=== PATIENT | female | born 1960 | race Caucasian/White ===

== ENCOUNTER → 2023-01-03 14:04 | Outpatient (CLI) | payer OTHER, SELFPAY ==
[2023-01-04 09:17] LABS: x Labcorp Estim. Avg Glu (eAG) 140 mg/dL (.); x Labcorp Hemoglobin A1c 6.5 % (4.8-5.6)
== END ==
PROVIDERS: PCP Podiatrist; Referring Provider Podiatrist; Visit Provider Podiatrist
DX: R73.9 Hyperglycemia, unspecified (principal)
CPT/HCPCS: 36415; 83036

== ENCOUNTER 2023-05-17 10:05 | Day surgery (SDC) | payer OTHER, SELFPAY ==
[2023-05-15 07:53] VITALS: BMI 31.6
[2023-05-17] VITALS (8 sets, daily range): BP systolic 109–140; BP diastolic 71–82; PULSE 72–83; RESP 12–16; TEMP 36.2–36.3; O2SAT 92–98; BMI 31.6
[2023-05-17] MEDS: LACTATED RINGERS 1,000 ML 100 ML IV ×2 (10:24→16:31)
--- NOTE | 2023-05-17 13:14 | PM.PREOP ---
Pre-operative Note Interval Note History & Physical reviewed/Exam performed by Physician: Yes Changes to H&P: No
--- NOTE | 2023-05-17 13:15 | PM.OP.1 ---
Operative Date/Time/Diagnoses Date of procedure: 05/17/23 Time of procedure: 13:15 Pre-op diagnosis: Right hallux valgus with bunion, metatarsalgia, hammertoes 2,3,4,5 Post-op diagnosis: same Procedure & Clinicians Procedure: 1. Right first metatarsophalangeal arthrodesis 2. Right second metatarsal osteotomy with proximal and distal interphalangeal arthrodesis 3. Right third proximal and distal interphalangeal arthrodesis 4. Right fourth proximal and distal interphalangeal arthrodesis 5. Right fifth metatarsophalangeal amputation Same procedure as scheduled: Yes Indications: 63 yo female with painful bunion and hammertoes to the right foot. Conservative measures failed to alleviate her pain and she wished to have surgical intervention at this time. We spoke of the risks, potential complications, expected outcomes. Consent was signed, no contraindications to the procedures at this time. Surgeon: Ghislaine Perales Click Yes if Unassisted: Yes Anesthesia Type: General Operative Notes Closure Type: primary Specimen(s): none sent Prosthetic devices, grafts, tissues, transplants, or devices: [place] 1st MTP fusion plate, cannulated 4.0 screw, cannulated 2.0 screw, 3.5 locking and non-locking screws (5) and 2.7 screw. 0.054 k-wires (3). Estimated Blood Loss (mL): 50 Blood products transfused: none Tourniquet time (min): 112 Procedure in detail: Patient was brought to the operating room and placed on the operating table in the supine position, well-padded and appropriately aligned. A tourniquet was placed about right thigh. After induction of general anesthesia the foot and ankle were prepped and draped in the usual aseptic manner. The tourniquet was inflated to the right thigh and however the recorded injectables were used to anesthetize the foot. After check of anesthesia an incision was made over the dorsal medial aspect of the 1st metatarsophalangeal joint of the right foot. The incision was deepened through subcutaneous tissues being careful to identify and retract all vital neural and vascular structures. All bleeders were cauterized and ligated as necessary. Capsulotomy was performed linearly over the 1st metatarsophalangeal joint. A saw was used to reduce the prominent medial and dorsal eminences of the 1st metatarsal head. A guidewire was placed in the central 1st metatarsal head and a Reamer removed cartilage from the head of the bone. The wire was removed and placed in the phalangeal base the Reamer used as well here. The guidewire was removed. Fenestration was performed on either side of the former joint including fish scaling. The area was irrigated with copious amounts of normal sterile saline. The area was temporarily fixated and checked under fluoroscopy to verify appropriate alignment and good apposition. The plate was chosen. The guidewire was placed from the distal lateral to proximal medial aspect across joint. Alignment was good and upon advancement of the screw there was a loss of the cortex dorsally with weakness there so the decision was made to discontinue that direction and we revised the location to be medially. Once again the guidewire was placed in the distal medial aspect of the foot joint and placed across the base of the proximal phalanx into the metatarsal head area. This was verified to be in good alignment on all 3 planes using mini fluoroscopy and the screw was advanced across this area with good alignment and good compression. Next the plate was placed after contouring it on a and a series of locking and nonlocking screws were placed across this. Once again checking this to be in good alignment and seated well. Next an incision was made over the 2nd toe into the metatarsophalangeal joint. The incision was deepened through subcutaneous tissues being careful to identify and retract all vital neural and vascular structures. All bleeders were cauterized ligated as necessary. The extensor was transected at the proximal interphalangeal joint. A saw was used to resect the head of proximal phalanx and the base of the intermediate phalanx and the same to the a distal interphalangeal joint. The area irrigated with normal saline. It was noted that there was still some contracture at the metatarsophalangeal joint so at that point the decision was made to create a decompressional osteotomy of the metatarsal. At the dorsal 2nd metatarsophalangeal joint the capsule was entered and the metatarsal head exposed. A saw was used to create an osteotomy with planing at the distal dorsal 2nd metatarsal head into the neck parallel to the weight-bearing surface. The head was then slid proximally and a guidewire placed dorsal to plantar. This correction was verified on fluoroscopy. Standard technique of a 2-0 screw was placed across using the guidewire and good compression was noted. The wire was removed and excess overhang of bone cartilage was removed at the dorsal head and at this was rasped smooth. And extensor tendon lengthening was performed in a Z-type manner and repaired using 3-0 Vicryl. Next, an incision was made over the 3rd toe. This was careful to identify and retract all vital neural and vascular structures. All bleeders were cauterized and ligated as necessary. The extensor was transected at the proximal interphalangeal joint. A saw was used to resect the head of the proximal phalanx the base of the intermediate phalanx. At the distal interphalangeal joint was reduced of some of the cartilage on either aspect using a saw. The area was irrigated with normal saline. A 0.054 K-wire was driven from the base of the intermediate phalanx out the tip of the 2nd toe and retrograded back through the proximal phalanx. Good alignment of this joint was noted. The same procedure was performed to the 4th toe. Following placement of each of these wires the excess wire was removed at the tip and it was carefully bent and capped on toes 2 3 and 4. Of note during the process of this the tourniquet was deflated at 112 minutes. Next of a full-thickness incision was made at the 5th metatarsophalangeal joint. The toe was disarticulated and passed from the field. Edges of skin were revised. The area was irrigated with normal saline. The extensor tendons on toes 2 3 and 4 were pared using Vicryl. Then the incisions were closed using Vicryl and the skin with nylon. Mildly compressive bandaging was placed on the foot and it was appropriately splinted. Triple antibiotic ointment was used at the wire tips. The patient was placed in her boot and transferred to the PACU with vital signs stable. Complications: none Post-operative Condition: stable Disposition: PACU Plan for aftercare: Following a period of postoperative monitoring, the patient will be discharged to home on written and oral postoperative instructions including keeping the dressing dry and intact, no weight to the surgical foot, elevating the foot when seated home. DVT prevention techniques have been reviewed. For the 1st postoperative visit the dressing will be changed and close to the 4th postoperative week we will likely take the 1st set of x-rays of the foot.
[2023-05-17] MEDS: CEFAZOLIN 2 GM/100 ML PREMIX 100 ML IV (13:38)
--- NOTE | 2023-05-17 14:06 | SUR.OPER ---
Supine on padded OR bed, head on pillow, arms secured on padded arm boards at <90 degrees abduction, legs uncrossed, safety belt at lower torso, tape over blanket over left lower leg. Gel and blanket bump under right hip and upper leg. Right leg sterily draped and in control of the surgeon.
[2023-05-17] MEDS: BUPIVACAINE 0.5% (PF) 30 ML VIAL INJ (14:14)
[2023-05-17] MEDS: NEOMYCIN/POLYMYXIN/BACITRA UD OINT 1 EACH TOP (16:53)
== END 2023-05-17 19:00 | disposition home or self-care (01) ==
PROVIDERS: Referring Provider Podiatrist; Visit Provider Podiatrist
PROC: (CPT 28820; principal; 2023-05-17 12:00)
DX: M20.41 Other hammer toe(s) (acquired), right foot (principal); M20.11 Hallux valgus (acquired), right foot; M77.41 Metatarsalgia, right foot; M79.671 Pain in right foot
CPT/HCPCS: 28820; 28308; 28285 ×3; 28750; 82962; C1734; J0690; J1100; J1885; J2250; J2405; J2704; J3010